=== PATIENT | female | born 1995 | race Caucasian/White ===

== ENCOUNTER 2022-04-17 18:57 | Emergency (ER) | payer BC, OTHER ==
[2022-04-17] MEDS ORDERED: Sodium Chloride 0.9% 10 ML Syringe FLUSH PRN (19:36)
[2022-04-17] MEDS ORDERED: Morphine 4 MG/ML VIAL IVPUSH ONE ×2 (19:37→22:28)
[2022-04-17] MEDS: Sodium Chloride 0.9% 1,000 ML IV SCH ×2 (19:59→22:40)
[2022-04-17 20:03] LABS: ESTIMATED GFR 102 mL/min (>60)
[2022-04-17] MEDS ORDERED: Iopamidol 755 Mg/ML 100 ML Bottle IV ONE (20:52)
[2022-04-17] MEDS ORDERED: Sodium Chloride 0.9% 1,000 ML IV SCH (22:45)
[2022-04-17] MEDS ORDERED: Ondansetron 4 MG/2 ML SDV IVPUSH PRN (23:04)
[2022-04-17] MEDS ORDERED: Morphine 4 MG/ML VIAL IVPUSH PRN (23:04)
[2022-04-17] MEDS ORDERED: Acetaminophen/oxyCODONE 325-5 MG Tab PO STA (23:46)
[2022-04-17] MEDS ORDERED: Ondansetron 4 MG Tab.DIS PO STA (23:46)
[2022-04-18] MEDS ORDERED: traMADol 50 MG Tab PO ONE (00:05)
== END 2022-04-18 00:30 | disposition left against medical advice (07) ==
LOC: FB.ED 18:57
DX: K56.609 Unspecified intestinal obstruction, unspecified as to partial versus complete obstruction (principal); E66.9 Obesity, unspecified; Z79.899 Other long term (current) drug therapy
CPT/HCPCS: 36415; 74177; 80053; 81001; 82150; 83690; 84702; 85025; 85610; 85730; 87086; 96361; 96374; 96376; 99284; A9270; J2270; J3490; J7030; Q0162; Q9967